=== PATIENT | female | born 1955 | race Caucasian/White ===

== ENCOUNTER 2016-09-17 14:59 | Emergency (ER) | payer MEDICAID ==
[2016-09-17 15:53] VITALS: BP 110/71
--- NOTE | 2016-09-17 16:47 | EDM.PDOC ---
ED HPI ENT - General Chief Complaint: ENT Problem Stated Complaint: NOSEBLEED Time Seen by Provider: 09/17/16 16:07 Source: Reports: Patient, Family, RN notes reviewed History Limitations: Reports: No limitations - History of Present Illness INITIAL COMMENTS - FREE TEXT/NARRATIVE: 60-year-old female presents to the emergency department today with complaint of nosebleed, she has had nosebleeds in the past has visited with ENT with some surgical fixation. Last nosebleed was about a year ago, this particular event she tried pulling the clots out at home with the nose clamp - Related Data Allergies/ADRs: Allergies Allergy/AdvReac Type Severity Reaction Status Date / Time codeine AdvReac Vomiting Verified 09/17/16 15:47 Home Meds: Home Meds Aspirin [Ecotrin] 81 mg PO DAILY 01/03/16 [History] Levothyroxine Sodium [Levothyroxine Sodium] 75 mcg PO DAILY 01/03/16 [History] Past Medical History HEENT History: Reports: Epistaxis, Other (see below) Other HEENT History: TMJ Gastrointestinal History: Reports: Cholelithiasis Psychiatric History: Reports: Depression Endocrine/Metabolic History: Reports: Hypothyroidism Hematologic History: Reports: Anemia - Infectious Disease History Infectious Disease History: Reports: Chicken pox, Diphtheria, Measles, Mumps - Past Surgical History HEENT Surgical History: Reports: Adenoidectomy, Tonsillectomy, Other (see below) Other HEENT Surgeries/Procedures: Jaw surgery GI Surgical History: Reports: Appendectomy, Cholecystectomy Female Surgical History: Reports: Hysterectomy Musculoskeletal Surgical History: Reports: Arthroscopic knee, Other (see below) Other Musculoskeletal Surgeries/Procedures:: foot surgery, 5 knee surgeries and 3 surgeries on feet. Social & Family History - Tobacco Use Smoking Status *Q: Never Smoker - Recreational Drug Use Recreational Drug Use: No ED ROS ENT - Review of Systems Review Of Systems: See Below Constitutional: Reports: no symptoms HEENT: Reports: Nosebleed Respiratory: Reports: no symptoms Cardiovascular: Reports: No symptoms GI/Abdominal: Reports: No symptoms : Reports: no symptoms ED EXAM, ENT - Physical Exam Exam: See Below Exam Limited By: No limitations General Appearance: alert, mild distress Nose: active bleeding, dried blood. No: nasal deformity, septal hematoma Respiratory/Chest: no respiratory distress ED ENT PROCEDURES - Epistaxis Procedure Indication: epistaxis Recent anticoagulants/antiplatlets: Yes (aspirin 81 mg) Uncontrolled HTN: No Recent septal/nasal surgery: No Site of bleeding: left nare Clearing of clots: patient blew nose Ice pack to area: No Anterior Packing: inflatable nasal tampon Posterior packing: long nasal tampon Complications: No Course - Vital Signs Last Recorded V/S: Last Vital Signs Temp 98.1 F 09/17/16 15:51 Pulse 82 09/17/16 15:51 Resp 14 09/17/16 15:51 BP 110/71 09/17/16 15:51 Pulse Ox 98 09/17/16 15:51 Departure - Departure Time of Disposition: 17:13 Disposition: Home, Self-Care 01 Condition: good Clinical Impression: Epistaxis, recurrent Referrals: PCP,None [Primary Care Provider] - Forms: ED Department Discharge Additional Instructions: please followup with your air nose and throat tomorrow - Assessment/Plan Plan: Assessment Acuity = acute Site and laterality = left nares epistaxis Etiology = unclear etiology Manifestations = none Location of injury = home Lab values = none Plan good resolution of the bleeding with nasal balloon on the left there, she is planning on following up with her ear nose and throat physician tomorrow Patient was in agreement with the plan all questions were answered, they were instructed to return to the emergency department or call for worsening symptoms. This note was dictated using [employer] voice recognition software please call with any questions.
== END 2016-09-17 17:45 | disposition home or self-care (01) ==
LOC: JP.ED 14:59
DX: R04.0 Epistaxis (principal); E03.9 Hypothyroidism, unspecified; Z88.5 Allergy status to narcotic agent; Z79.82 Long term (current) use of aspirin; Z79.899 Other long term (current) drug therapy; Z90.710 Acquired absence of both cervix and uterus; Z98.890 Other specified postprocedural states
CPT/HCPCS: 30901; 30905; 99283-25

== ENCOUNTER 2017-10-03 06:40 | Emergency (ER) | payer BC, OTHER ==
[2017-10-03] MEDS ORDERED: Lactated Ringers 1,000 ML IV ONE (07:35)
[2017-10-03] MEDS ORDERED: LORazepam 2 MG/ML SDV IVPUSH ONE (07:37)
--- NOTE | 2017-10-03 07:42 | EDM.PDOC ---
ED HPI GENERAL MEDICAL PROBLEM - General Chief Complaint: General Stated Complaint: CANT EAT/ABD PAIN Time Seen by Provider: 10/03/17 07:25 Source of Information: Reports: Patient, Old Records, RN History Limitations: Reports: No Limitations - History of Present Illness INITIAL COMMENTS - FREE TEXT/NARRATIVE: 61 yo female here with chronic RUQ abdominal pain. Was worked up extensively for this and gastroenterology in [place] feels she has IBS. She has recently had normal blood work. Has had her GB out already. Her stools historically vary from loose to hard. A recent abdominal US was also negative. Has had issue with her TSH per her report, a TSH a week ago was WNL's. Says she's weak today. Has nausea without vomiting. No appetite. Bowels OK lately. Pain RUQ worse than before. No tx prior to arrival. Onset: Unknown/Unsure Duration: Chronic, Waxing/Waning Location: Reports: Abdomen (Usually RUQ) Quality: Reports: Ache Severity: Moderate Improves with: Reports: None Worsens with: Reports: Other (unknown) Context: Reports: Other (Has had an extensive work up including GI consult with no findings to date.) Associated Symptoms: Reports: Nausea/Vomiting (not vomiting). Denies: Fever/ Chills (Feels chilled much of the time for the past mos. 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) (Usual meds only) Right Abdominal Pain Score (Numeric/FACES): 7 - Related Data Allergies Allergy/AdvReac Type Severity Reaction Status Date / Time codeine AdvReac Vomiting Verified 10/03/17 07:02 Home Meds: Home Meds Aspirin [Ecotrin] 81 mg PO DAILY 01/03/16 [History] Levothyroxine Sodium 50 mcg PO DAILY 01/03/16 [History] Past Medical History HEENT History: Reports: Epistaxis, Other (See Below) Other HEENT History: TMJ Gastrointestinal History: Reports: Cholelithiasis, Irritable Bowel Syndrome Musculoskeletal History: Reports: Other (See Below) Other Musculoskeletal History: right knee pain Psychiatric History: Reports: Depression Endocrine/Metabolic History: Reports: Hypothyroidism Hematologic History: Reports: Anemia - Infectious Disease History Infectious Disease History: Reports: Chicken Pox, Measles, Mumps - Past Surgical History HEENT Surgical History: Reports: Adenoidectomy, Tonsillectomy, Other (See Below) GI Surgical History: Reports: Appendectomy, Cholecystectomy Female Surgical History: Reports: Hysterectomy Musculoskeletal Surgical History: Reports: Arthroscopic Knee, Other (See Below) Social & Family History - Tobacco Use Smoking Status *Q: Never Smoker - Caffeine Use Caffeine Use: Reports: None - Recreational Drug Use Recreational Drug Use: No ED ROS GENERAL - Review of Systems Review Of Systems: See Below Constitutional: Reports: No Symptoms, Weakness HEENT: Reports: No Symptoms Respiratory: Reports: No Symptoms Cardiovascular: Reports: No Symptoms Endocrine: Reports: Fatigue GI/Abdominal: Reports: Abdominal Pain, Anorexia, Decreased Appetite, Nausea. Denies: Black Stool, Bloody Stool, Constipation, Diarrhea, Difficulty Swallowing , Distension, Flatus, Hematemesis, Vomiting : Reports: No Symptoms Musculoskeletal: Reports: No Symptoms Skin: Reports: No Symptoms Neurological: Reports: No Symptoms Psychiatric: Reports: No Symptoms ED EXAM, GENERAL - Physical Exam Exam: See Below Exam Limited By: No Limitations General Appearance: Alert, WD/WN, No Apparent Distress Eye Exam: Bilateral Eye: Normal Inspection Ears: Normal External Exam, Normal Canal, Hearing Grossly Normal, Normal TMs Ear Exam: Bilateral Ear: Auricle Normal, Canal Normal, TM normal Nose: Normal Inspection, Normal Mucosa, No Blood Throat/Mouth: Normal Inspection, Normal Lips, Normal Voice, No Airway Compromise Head: Atraumatic, Normocephalic Neck: Normal Inspection, Supple, Non-Tender Respiratory/Chest: No Respiratory Distress, Lungs Clear, Normal Breath Sounds, No Accessory Muscle Use Cardiovascular: Regular Rate, Rhythm GI/Abdominal: Normal Bowel Sounds, Soft, No Distention, Tender (RUQ only) Back Exam: Normal Inspection. No: CVA Tenderness (R), CVA Tenderness (L) Extremities: Normal Inspection, Normal Range of Motion, Non-Tender, No Pedal Edema Neurological: Alert, Oriented, CN II-XII Intact, Normal Cognition, No Motor/ Sensory Deficits Psychiatric: Normal Affect, Normal Mood Skin Exam: Warm, Dry, Intact, Normal Color, No Rash Lymphatic: No Adenopathy Course - Vital Signs Last Recorded V/S: Last Vital Signs Temp 35.7 C 10/03/17 06:59 Pulse 71 10/03/17 07:50 Resp 18 10/03/17 07:50 BP 130/77 10/03/17 07:50 Pulse Ox 99 10/03/17 07:50 - Orders/Labs/Meds Orders: Active Orders 24 hr Category Date Time Status Abdomen 1V Flat [CR] Stat Exams 10/03/17 07:35 Taken UA W/MICROSCOPIC [URIN] Stat Lab 10/03/17 07:38 Ordered Labs: Laboratory Tests 10/03/17 10/03/17 10/03/17 Range/Units 07:38 07:48 07:48 WBC 6.8 (4.5-11.0) K/uL RBC 4.72 (3.30-5.50) M/uL Hgb 15.0 (12.0-15.0) g/dL Hct 44.0 (36.0-48.0) % MCV 93 (80-98) fL MCH 32 H (27-31) pg MCHC 34 (32-36) % Plt Count 210 (150-400) K/uL Sodium 143 (140-148) mmol/L Potassium 3.9 (3.6-5.2) mmol/L Chloride 107 (100-108) mmol/L Carbon Dioxide 27 (21-32) mmol/L Anion Gap 8.6 (5.0-14.0) mmol/L BUN 10 (7-18) mg/dL Creatinine 0.9 (0.6-1.0) mg/dL Est Cr Clr Drug Dosing 62.22 mL/min Estimated GFR (MDRD) > 60 (>60) Glucose 100 (74-106) mg/dL Calcium 8.9 (8.5-10.1) mg/dL Total Bilirubin 0.6 (0.2-1.0) mg/dL AST 18 (15-37) U/L ALT 18 (12-78) U/L Alkaline Phosphatase 76 (46-116) U/L C-Reactive Protein < 0.05 (0.0-0.3) mg/dL Total Protein 6.9 (6.4-8.2) g/dL Albumin 2.5 L (3.4-5.0) g/dL Globulin 4.4 H (2.3-3.5) g/dL Albumin/Globulin Ratio 0.6 L (1.2-2.2) Urine Color Yellow Urine Appearance Clear Urine pH 7.0 (4.5-8.0) Ur Specific Spray 1.005 L (1.008-1.030) Urine Protein Negative (NEGATIVE) mg/dL Urine Glucose (UA) Normal (NEGATIVE) mg/dL Urine Ketones Negative (NEGATIVE) mg/dL Urine Occult Blood Negative (NEGATIVE) Urine Nitrite Negative (NEGATIVE) Urine Bilirubin Negative (NEGATIVE) Urine Urobilinogen Normal (NORMAL) mg/dL Ur Leukocyte Esterase Negative (NEGATIVE) Urine RBC Not seen (0-5) Urine WBC Not seen (0-5) Ur Epithelial Cells Not seen Amorphous Sediment Not seen Urine Bacteria Not seen Urine Mucus Not seen Meds: Medications Discontinued Medications Generic Name Dose Route Start Last Admin Trade Name Freq PRN Reason Stop Dose Admin Bisacodyl 10 mg 10/03/17 08:30 10/03/17 08:38 Dulcolax RECTAL 10/03/17 08:31 10 mg ONETIME ONE Administration Lactated Ringer's 1,000 mls @ 1,000 mls/hr 10/03/17 07:35 10/03/17 08:08 Ringers, Lactated IV 10/03/17 08:34 1,000 mls/hr BOLUS ONE Administration Lorazepam 1 mg 10/03/17 07:37 10/03/17 08:06 Ativan IVPUSH 10/03/17 07:38 1 mg ONETIME ONE Administration Metoclopramide HCl 10 mg 10/03/17 07:50 10/03/17 08:08 Reglan IVPUSH 10/03/17 07:51 10 mg ONETIME ONE Administration Polyethylene Glycol 34 gm 10/03/17 08:50 Miralax PO 10/03/17 08:51 ONETIME ONE - Radiology Interpretation Free Text/Narrative:: Single view abdominal X-ray- large amt of stool, no other pathology noted. Surgical clips RUQ. Departure - Departure Time of Disposition: 09:10 Disposition: Home, Self-Care 01 Condition: Fair Clinical Impression: IBS (irritable bowel syndrome) Qualifiers: Irritable bowel syndrome type: with constipation Qualified Code(s): K58.1 - Irritable bowel syndrome with constipation - Discharge Information Referrals: PCP,None [Primary Care Provider] - Forms: ED Department Discharge - My Orders Last 24 Hours: My Active Orders 10/03/17 07:35 Abdomen 1V Flat [CR] Stat 10/03/17 07:38 UA W/MICROSCOPIC [URIN] Stat - Assessment/Plan Last 24 Hours: My Active Orders 10/03/17 07:35 Abdomen 1V Flat [CR] Stat 10/03/17 07:38 UA W/MICROSCOPIC [URIN] Stat
[2017-10-03] MEDS ORDERED: Metoclopramide 10 MG/2 ML SDV IVPUSH ONE (07:50)
[2017-10-03] MEDS ORDERED: Bisacodyl 10 MG Supp RECTAL ONE (08:30)
[2017-10-03] MEDS ORDERED: Polyethylene Glycol 3350 Powder 17 GM Packet PO ONE (08:50)
--- NOTE | 2017-10-03 09:54 | CR ---
Large amount of fecal residual. No dilated loops of large or small bowel.
[2017-10-03 10:18] VITALS: BP 127/61
== END 2017-10-03 10:19 | disposition home or self-care (01) ==
LOC: JP.ED 06:40
DX: K58.1 Irritable bowel syndrome with constipation (principal); E03.9 Hypothyroidism, unspecified; Z79.82 Long term (current) use of aspirin; Z79.899 Other long term (current) drug therapy; Z88.5 Allergy status to narcotic agent
CPT/HCPCS: 36415; 74018; 80053; 81001; 85027; 86140; 96361; 96374; 96375; 99284; A9270; J2060; J2765; J7120